=== PATIENT | male | born 1985 | race African-American/Black ===

== ENCOUNTER 2017-04-06 08:48 | Emergency (ER) | payer SELFPAY ==
[~2017-04-06 08:48] MED LIST: ONDA4TAB10 SL
[2017-04-06] MEDS ORDERED: ONDANSETRON ODT 4 MG TAB.RAPDIS PO ONE (09:45)
[2017-04-06] MEDS ORDERED: MORPHINE SULFATE 10 MG/ML SYRINGE. IM ONE (09:45)
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
--- NOTE | 2017-04-06 10:13 | RAD ---
Indication pain. AP oblique and lateral views of the left ankle were obtained. A total of 4 views was obtained. No acute or significant bony finding is seen.
[2017-04-06] MEDS ORDERED: IBUP600T16 PO (10:33)
[2017-04-06] MEDS ORDERED: CYCL5TAB PO (10:33)
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
[2017-04-06] MEDS ORDERED: KETOROLAC 60 MG/2 ML VIAL. IM ONE (10:45)
[2017-04-06 11:00] VITALS: BP 137/76
== END 2017-04-06 11:00 | disposition home or self-care (01) ==
LOC: ER 08:48
DX: S16.1XXA Strain of muscle, fascia and tendon at neck level, initial encounter (principal); R22.42 Localized swelling, mass and lump, left lower limb; R51 Headache; F17.200 Nicotine dependence, unspecified, uncomplicated; V89.2XXA Person injured in unspecified motor-vehicle accident, traffic, initial encounter; Y93.89 Activity, other specified; Y99.8 Other external cause status; Y92.410 Unspecified street and highway as the place of occurrence of the external cause
CPT/HCPCS: 70450; 72125; 73610; 96372; 99284; J1885; J2270; Q0162

== ENCOUNTER 2017-04-09 11:26 | Emergency (ER) | payer SELFPAY ==
[~2017-04-09] VITALS: Ht 175.3 cm; Wt 81.6 kg
[~2017-04-09 11:26] MED LIST changes: +CYCL5TAB PO; +IBUP600T16 PO
[2017-04-09] MEDS ORDERED: HYDROcodone/APAP 5/325MG 1 TAB TABLET PO ONE (12:10)
[2017-04-09] MEDS ORDERED: ONDANSETRON ODT 4 MG TAB.RAPDIS PO ONE (12:10)
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
[2017-04-09 12:50] VITALS: BP 132/75
[2017-04-09] MEDS ORDERED: HYDR-971 PO (13:03)
== END 2017-04-09 13:05 | disposition home or self-care (01) ==
LOC: ER 11:26
DX: S06.0X0A Concussion without loss of consciousness, initial encounter (principal); M79.645 Pain in left finger(s); R22.32 Localized swelling, mass and lump, left upper limb; V89.2XXA Person injured in unspecified motor-vehicle accident, traffic, initial encounter; Y93.89 Activity, other specified; Y99.8 Other external cause status; Y92.89 Other specified places as the place of occurrence of the external cause
CPT/HCPCS: 29130; 73140; 99284; Q0162

== ENCOUNTER 2019-08-26 05:44 | Emergency (ER) | payer SELFPAY ==
[~2019-08-26] VITALS: Ht 175.3 cm; Wt 77.2 kg
[~2019-08-26 05:44] MED LIST changes: +HYDR-3165 PO
[2019-08-26 05:50] VITALS: BP 132/75
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
[2019-08-26] MEDS ORDERED: NEOMY/BACITR/POLYMYXIN OINT PACKET. TP ONE (06:30)
[2019-08-26] MEDS ORDERED: DICL75TA PO (06:35)
== END 2019-08-26 06:40 | disposition home or self-care (01) ==
LOC: ER 05:44
DX: S61.411A Laceration without foreign body of right hand, initial encounter (principal); F10.129 Alcohol abuse with intoxication, unspecified; F17.210 Nicotine dependence, cigarettes, uncomplicated; W25.XXXA Contact with sharp glass, initial encounter; Y93.89 Activity, other specified; Y92.89 Other specified places as the place of occurrence of the external cause; Y99.8 Other external cause status; Y90.9 Presence of alcohol in blood, level not specified
CPT/HCPCS: 12002; 99283

== ENCOUNTER 2020-05-13 10:34 | Emergency (ER) | payer SELFPAY ==
[~2020-05-13] VITALS: Ht 175.3 cm; Wt 72.8 kg
[~2020-05-13 10:34] MED LIST changes: +DICL75TA PO
[2020-05-13] MEDS ORDERED: IV NORMAL SALINE 1,000ML 1,000 ML IV SCH (10:49)
[2020-05-13] MEDS ORDERED: ONDANSETRON PF 4 MG/2 ML VIAL. IVP ONE (11:00)
[2020-05-13 11:26] LABS: BASO # 0.1 x10^3/uL (0.0-0.2); BASO % 2 % (0-3); EOS % 0 % (0-3); HEMATOCRIT 50.4 % (39.0-53.0); LYMPH # 0.8 x10^3/uL (1.0-4.8); LYMPH % 10 % (24-48); MEAN CORPUSCULAR HEMOGLOBIN 33 pg (25-35); MEAN CORPUSCULAR HGB CONC 34 g/dL (31-37); MEAN CORPUSCULAR VOLUME 99 fL (79-100); MONO # 0.4 x10^3/uL (0.0-1.1); MONO % 5 % (0-9); NEUT # 6.6 x10^3uL (1.8-7.7); NEUT % 83 % (31-73); PLATELET COUNT 234 x10^3/uL (140-400); RED BLOOD COUNT 5.09 x10^6/uL (4.30-5.70); RED CELL DISTRIBUTION WIDTH 14.6 % (11.5-14.5)
[2020-05-13 11:31] LABS: CALCIUM 10.1 mg/dL (8.5-10.1); GFR 104.1; POTASSIUM 4.5 mmol/L (3.5-5.1)
[2020-05-13 11:46] LABS: ALBUMIN 4.5 g/dL (3.4-5.0); ALBUMIN/GLOBULIN RATIO 0.9 (1.0-1.7); TOTAL BILIRUBIN 0.9 mg/dL (0.2-1.0); TOTAL PROTEIN 9.3 g/dL (6.4-8.2)
[2020-05-13] MEDS ORDERED: MORPHINE SULFATE 4 MG/ML DISP.SYRIN. IV ONE (12:30)
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
[2020-05-13] MEDS ORDERED: ONDA4TAB7 PO (12:53)
[2020-05-13 13:00] VITALS: BP 131/68
[2020-05-13 13:03] LABS: BARBITURATES NEG (NEG); BENZODIAZEPINES NEG (NEG); CANNABINOIDS POS (NEG); COCAINE NEG (NEG); METHADONE NEG (NEG); OPIATES NEG (NEG); PHENCYCLIDINE NEG (NEG)
[2020-05-13 13:04] LABS: BILIRUBIN,URINE NEG (NEG); CLARITY,URINE HAZY; COLOR,URINE YELLOW; GLUCOSE,URINE NEG (NEG)
[2020-05-13 13:05] LABS: BACTERIA,URINE 0 /HPF (0-FEW); NITRITE,URINE NEG (NEG); RBC,URINE OCC /HPF (0-2); SQUAMOUS EPITHELIAL CELL,UR FEW /LPF
[2020-05-13 13:06] LABS: AMPHETAMINE/METHAMPHETAMINE POS (NEG)
== END 2020-05-13 13:03 | disposition home or self-care (01) ==
LOC: ER 10:34
DX: R10.84 Generalized abdominal pain (principal); R11.2 Nausea with vomiting, unspecified; F17.200 Nicotine dependence, unspecified, uncomplicated; Z20.828 Contact with and (suspected) exposure to other viral communicable diseases
CPT/HCPCS: 36415; 80053; 80307; 81001; 82550; 83690; 85025; 86592; 86703; 87086; 87491; 87591; 96361; 96374; 96375; 99284; C9803; J2270; J2405; J7030; U0003

== ENCOUNTER → 2021-02-06 | Outpatient (CLI) | payer OTHER ==
[~2021-02-06] MED LIST changes: +ONDA4TAB7 PO
--- NOTE | 2021-02-06 10:23 | RAD ---
INDICATION: Reason: BACK PAIN / Spl. Instructions: / History: COMPARISON: None. IMPRESSION: Lumbar spine: 5 views obtained. Degenerative changes the spine including degenerative disc disease most severe at the lumbosacral kamron ction where there is disc space narrowing as well as osteophyte formation. Mild facet hypertrophy is also seen. No definite acute fracture or dislocation of lumbar spine. There is some angulation at the distal sacrum. This could be a normal variant but would correlate with symptoms to ensure that there is not a sacral fracture of unknown age contributing. Electronically signed by: Hemant Christopher MD (02/06/2021 10:21 AM) [id number]
== END ==
LOC: RAD 09:54
PROVIDERS: ATTEND Nurse Practitioner Family
DX: M51.36 Other intervertebral disc degeneration, lumbar region (principal); M48.061 Spinal stenosis, lumbar region without neurogenic claudication; M25.78 Osteophyte, vertebrae; M54.42 Lumbago with sciatica, left side; M54.41 Lumbago with sciatica, right side
CPT/HCPCS: 72110